=== PATIENT | male | born 1975 | race Caucasian/White ===

== ENCOUNTER 2022-02-22 12:29 | Emergency (ER) | payer OTHER ==
[~2022-02-22] VITALS: Ht 165.1 cm; Wt 72.6 kg
[2022-02-22] MEDS ORDERED: KETO10TA2 PO (15:09)
[2022-02-22] MEDS ORDERED: NORFLEX100MG PO (15:09)
== END 2022-02-22 16:21 | disposition home or self-care (01) ==
LOC: ER 12:29
DX: S00.93XA Contusion of unspecified part of head, initial encounter (principal); V19.9XXA Pedal cyclist (driver) (passenger) injured in unspecified traffic accident, initial encounter; Y93.9 Activity, unspecified; Y92.89 Other specified places as the place of occurrence of the external cause; Y99.9 Unspecified external cause status